=== PATIENT | female | born 1975 | race Caucasian/White ===

== ENCOUNTER 2020-08-08 14:18 | Outpatient (CLI) | payer OTHER, SELFPAY ==
[2020-08-08 14:28] LABS: Hematocrit 41.3 % (35.0-49.0); Hemoglobin 13.9 g/dL (12.0-15.0); Mean Corpuscular HGB Conc 33.7 g/dL (32.0-36.0); Mean Corpuscular Hemoglobin 28.5 pg (27.0-31.0); Mean Corpuscular Volume 84.6 fL (78.0-102.0); Mean Platelet Volume 9.3 fl (9.2-11.8); Platelet Count Result 248 K/mm3 (150-420); Red Blood Count 4.88 M/mm3 (4.20-5.40); White Blood Count 9.4 K/mm3 (4.8-10.8)
[2020-08-08 15:43] LABS: Alanine Aminotransferase 36 U/L (14-59); Albumin Level 3.7 g/dL (3.4-5.0); Alkaline Phosphatase 95 U/L (46-116); Anion Gap 10 mmol/L (8-16); Aspartate Amino Transferase 34 U/L (15-37); Bilirubin,Total 0.4 mg/dL (0.00-1.00); Blood Urea Nitrogen 18 mg/dL (7-18); Calcium 9.2 mg/dL (8.5-10.1); Carbon Dioxide 24 mmol/L (21-32); Chloride 106 mmol/L (98-108); Cholesterol 229 mg/dL (0-200); Estimated Glomerular Filt Rate 55; Glucose 113 mg/dL (70-99); HDL Direct 30 mg/dL (40-60); LDL Cholesterol Calculated 158 mg/dL (<130); Osmolality Calculated 292 mOsm/kg (285-295); Potassium 4.1 mmol/L (3.5-5.1); Sodium 140 mmol/L (136-145); Total Protein 7.2 g/dL (6.4-8.2); Triglycerides 207 mg/dL (0-150)
[2020-08-08 16:22] LABS: Thyroid Stimulating Hormone Reflex 3.87 u/IU/mL (0.36-3.74)
[2020-08-08 16:23] LABS: Free T4 Free Thyroxine Reflex 0.81 ng/dL (0.76-1.46)
== END 2020-08-08 14:19 | disposition home or self-care (01) ==
LOC: CHSLAB 14:20
PROVIDERS: PCP Family Medicine; Visit Provider Family Medicine
DX: Z00.00 Encounter for general adult medical examination without abnormal findings (principal)
CPT/HCPCS: 36415; 80053; 80061; 84439; 84443; 85027

== ENCOUNTER 2020-12-28 13:59 | Outpatient (NON) | payer OTHER, SELFPAY | END 2020-12-28 14:00 | LOC: CHSLAB 14:01 | PROVIDERS: PCP Nurse Practitioner Family; Visit Provider Nurse Practitioner Family | DX: R35.0 Frequency of micturition (principal) | CPT/HCPCS: 87077; 87086; 87088; 87186 ==

== ENCOUNTER 2021-01-09 13:12 | Outpatient (CLI) | payer OTHER, SELFPAY ==
[2021-01-09 13:23] LABS: Add Urine Microscopic? YES; Appearance Urine Clear (Clear); Bilirubin Urine Negative (Negative); Blood Urine 1+ (Negative); Color Urine Yellow (Yellow); Glucose Urine UA Negative (Negative); Ketones Urine Negative (Negative); Leukocyte Esterase Ur Trace (Negative); Nitrate Urine Negative (Negative); Protein Urine Negative (Negative); Urobilinogen Urine 0.2 mg/dL (0.2-1.0)
[2021-01-09 13:38] LABS: RBC Urine 0-2 /hpf (0-2); Squamous Epithelial Cell Urine Occasional /hpf (Few); WBC Urine None seen /hpf (0-3)
[2021-01-09 13:39] LABS: Bacteria Urine Trace /hpf
== END 2021-01-09 13:13 | disposition home or self-care (01) ==
LOC: CHSLAB 13:15
PROVIDERS: PCP Nurse Practitioner Family; Visit Provider Nurse Practitioner Family
DX: R35.0 Frequency of micturition (principal)
CPT/HCPCS: 81001; 87086; 87088

== ENCOUNTER → 2021-03-21 10:08 | Outpatient (CLI) | payer OTHER, SELFPAY ==
--- NOTE | ~2021-03-21 | MM_ITS ---
EXAMINATION: MM screening precious BI w anny HISTORY: Screening TECHNIQUE: Craniocaudal and mediolateral oblique 3-D tomosynthesis images were obtained and synthetic 2-D images were generated. CAD analysis was submitted and interpreted. COMPARISON: Comparison to multiple prior studies sequentially, with oldest reviewed study dated 03/17. BREAST PARENCHYMAL COMPOSITION: There are scattered areas of fibroglandular density. FINDINGS: There is no evidence of suspicious mass, calcification, or architectural distortion to sugg est malignancy in either breast. There has been no suspicious interval change. IMPRESSION: 1. No mammographic evidence of malignancy. 2. Recommend routine screening mammography in one year. BI-RADS Category 1: Negative Reviewed, dictated and finalized at location A.
== END ==
PROVIDERS: Visit Provider Obstetrics & Gynecology
DX: Z12.31 Encounter for screening mammogram for malignant neoplasm of breast (principal)
CPT/HCPCS: 77063; 77067

== ENCOUNTER 2021-11-06 09:04 | Outpatient (CLI) | payer OTHER, SELFPAY ==
[2021-11-06 09:51] LABS: SARS-CoV-2 Ag Negative (Negative)
== END 2021-11-06 09:05 | disposition home or self-care (01) ==
LOC: CHSLAB 09:06
PROVIDERS: PCP Nurse Practitioner Family; Visit Provider Nurse Practitioner Family
DX: Z20.822 Contact with and (suspected) exposure to COVID-19 (principal)
CPT/HCPCS: 87426; C9803

== ENCOUNTER 2021-11-08 13:34 | Outpatient (CLI) | payer OTHER, SELFPAY ==
[2021-11-08 15:08] LABS: SARS-CoV-2 Ag Positive (Negative)
== END 2021-11-08 13:35 | disposition home or self-care (01) ==
LOC: CHSLAB 13:36
PROVIDERS: PCP Nurse Practitioner Family; Visit Provider Nurse Practitioner Family
DX: U07.1 COVID-19 (principal)
CPT/HCPCS: 87426; C9803

== ENCOUNTER 2022-03-12 09:32 | Outpatient (CLI) | payer OTHER, SELFPAY ==
[2022-03-17 14:34] LABS: TB Skin Test Interpretation Unable to Read (Negative); TB Skin Test Site Left Arm
== END 2022-03-12 09:33 | disposition home or self-care (01) ==
LOC: CHSLAB 09:34
PROVIDERS: PCP Nurse Practitioner Family; Visit Provider Nurse Practitioner Family
DX: Z11.1 Encounter for screening for respiratory tuberculosis (principal)
CPT/HCPCS: 36415; 86580

== ENCOUNTER 2022-04-15 15:12 | Outpatient (CLI) | payer OTHER, SELFPAY | END 2022-04-15 15:13 | disposition home or self-care (01) | PROVIDERS: PCP Nurse Practitioner Family; Visit Provider Nurse Practitioner Family | DX: R30.0 Dysuria (principal); R19.7 Diarrhea, unspecified | CPT/HCPCS: 87045; 87077; 87086; 87088; 87186; 87427 ==

== ENCOUNTER 2022-04-18 11:08 | Emergency (ER) | payer OTHER, SELFPAY ==
--- NOTE | ~2022-04-18 | CT_ITS ---
EXAMINATION: CT abdomen pelvis wo con DATE: 04/18/2022 11:51 INDICATION: Abdominal pain. Diarrhea. TECHNIQUE: Computed tomography (CT) of the abdomen and pelvis was performed without intravenous contr ast. Automated exposure control and iterative reconstruction technique were employed. The dose-length product was 329.16 mGy-cm. COMPARISON: None. FINDINGS: The visualized portions of the lung bases demonstrate mild atelectasis. There is a 5 mm nod ule in left lower lobe, likely benign. No pleural effusion. The heart size is normal. No pericardial effusion. The liver, gallbladder, spleen, pancreas, adrenal glands, and right kidney are normal. Ther e is mild atrophy of left kidney. There is a 6 mm stone in left kidney. There is liquid stool in the colon correlating with the symptom of diarrhea. There are no dilated loops of bowel. The appendix is normal. There are no pathologically enlarged lymph nodes. There is no free intraperitoneal fluid. The re is a benign bone island in right ilium. IMPRESSION: 1. Nonobstructing left kidney stone. Reviewed, dictated and finalized at location B.
[2022-04-18 11:10] VITALS: BP 129/83; PULSE 84; RESP 18; TEMP 36.1; O2SAT 98
[2022-04-18 11:27] LABS: Basophils Percent Auto 0.4 % (0.2-1.2); Eosinophils Absolute Auto 0.1 K/mm3 (0-0.3); Eosinophils Percent Auto 1.7 % (0-4.4); Hematocrit 41.7 % (37.0-47.0); Immature Granulocyte Absolute 0.02 K/mm3 (0.00-0.031); Immature Granulocyte Percent A 0.4 % (0-0.5); Lymphocytes Absolute Auto 1.18 K/mm3 (0.9-3.2); Lymphocytes Percent Auto 22.3 % (18.3-44.2); Mean Corpuscular HGB Conc 33.6 g/dl (32-36); Mean Corpuscular Hemoglobin 28.1 pg (26-34); Mean Corpuscular Volume 83.7 fl (80-100); Mean Platelet Volume 8.9 fl (7.4-10.4); Monocytes Absolute Auto 0.5 K/mm3 (0.1-0.6); Monocytes Percent Auto 9.6 % (2.6-8.5); Neutrophils Absolute Auto 3.5 K/mm3 (1.3-6.7); Neutrophils Percent Auto 65.6 % (45.5-73.1); Platelet Count Result 247 k/mm3 (150-375); Red Blood Count 4.98 M/mm3 (4.2-5.4); Red Cell Distribution Width 13.2 % (11.5-14.5); White Blood Count 5.3 K/mm3 (4.5-10.0)
[2022-04-18 11:36] LABS: Alanine Aminotransferase 119 U/L (6-35); Albumin Level 4.2 g/dL (3.5-5.1); Alkaline Phosphatase 87 U/L (38-126); Anion Gap 7 mmol/L (8-16); Aspartate Amino Transferase 68 U/L (14-36); Bilirubin,Total 0.8 mg/dL (0.2-1.3); Blood Urea Nitrogen 10 mg/dL (7-17); Calcium 8.5 mg/dL (8.4-10.2); Carbon Dioxide 23 mmol/L (22-30); Chloride 110 mmol/L (98-107); Estimated CRCL calculation 70 ml/min; Estimated Glomerular Filt Rate > 60; Glucose 99 mg/dL (65-110); Lipase 76 U/L (23-300); Potassium 3.6 mmol/L (3.4-5.0); Sodium 140 mmol/L (137-145)
--- NOTE | 2022-04-18 11:36 | ED.ABDPAIN ---
HPI - Abdominal Pain General Chief Complaint: Abdominal Pain Stated Complaint: Stomach Craps, Diarrhea x1 week Time Seen by Provider: 04/18/22 11:25 Source: patient Mode of arrival: ambulatory Limitations: no limitations History of Present Illness HPI narrative: Patient presents to the emergency department for diarrhea. Ongoing over the last week. Reports she has about 2 episodes of diarrhea daily. The stool is liquid. She has not had any blood in the stool. Reports ongoing crampy abdominal pain. She has been having some dysuria. She saw her primary provider who ordered stool cultures and urine culture. Stool cultures came back negative. Reports some nausea. Denies fever, vomiting, or hematuria. Related Data Allergies Allergy/AdvReac Type Severity Reaction Status Date / Time amoxicillin Allergy Unknown RASH, SOB Verified 04/18/22 11:14 Review of Systems Review of Systems: CONSTITUTIONAL: Denies fever GASTROINTESTINAL: Reports abdominal pain, nausea and diarrhea. 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 Migraines Overweight with body mass index (BMI) 25.0-29.9 Systolic murmur 2018 - Echo was normal Surgical History Surgical History History of endometrial ablation History of total knee arthroplasty Arthroscopic Repair of left knee as a child Family History Family History Mother Hypertension Sibling Asthma Mesothelioma of both lungs Social History Social History Smoking status: Never smoker Alcohol intake: never Substance use: never Substance use type: does not use Gender identity (if verbalized by the patient): Female Exam Narrative: GENERAL: Well-appearing, well-nourished, and in no acute distress. HEAD: Normocephalic, atraumatic. EYES: EOMI. CHEST: Clear to auscultation. No respiratory distress. No wheezes rales or rhonchi HEART: Regular rate and rhythm. No murmur heard. Normal peripheral pulses. ABDOMEN: Soft, nontender, nondistended, normal active bowel sounds. EXTREMITIES: Normal range of motion. No edema. SKIN: Warm, dry, no rash. NEURO: No focal deficits. Alert and oriented x3. PSYCH: Normal mood and affect Course Consultations Consultation #1: Spoke with patient's primary about work-up who will follow-up in clinic. Date: 04/18/22 Vital Signs Vital signs: Vital Signs Temperature 97.0 F L 04/18/22 11:10 Pulse Rate 84 04/18/22 11:10 Respiratory Rate 18 04/18/22 11:10 Blood Pressure 129/83 04/18/22 11:10 Pulse Oximetry 98 04/18/22 11:10 Oxygen Delivery Room Air 04/18/22 11:10 Temperature 97.0 F L 04/18/22 11:10 Pulse Rate 84 04/18/22 11:10 Respiratory Rate 18 04/18/22 11:10 Blood Pressure 129/83 04/18/22 11:10 Pulse Oximetry 98 04/18/22 11:10 Oxygen Delivery Room Air 04/18/22 11:10 MDM - Abdominal Pain MDM Narrative Medical decision making narrative: Patient presents to the emergency department for abdominal cramping and diarrhea. Ongoing over the last week. Patient is afebrile and nontoxic-appearing. CBC without leukocytosis. Metabolic panel with mild transaminitis. Lipase is normal. Patient did have a UA that see culture just came back positive. Will be started on Macrobid based on sensitivities. test is negative. CT scan of the abdomen and pelvis shows a nonobstructing left kidney stone. No other acute findings. Patient was updated on case findings. Spoke with patient's primary about work-up who will follow-up in clinic. Patient will als
--- NOTE | 2022-04-18 11:39 | PC.NURSE ---
Pt states her tubes are tied in 2007.
--- NOTE | 2022-04-18 12:16 | PC.NURSE ---
pt states she is unable to void at this time.
[2022-04-18] MEDS: SODIUM CHLORIDE 0.9% IV 1,000 ML 999 ML IV CONT (12:17)
[2022-04-18] MEDS: ONDANSETRON INJ 4 MG/2 ML VIAL IV PUSH (12:18)
[2022-04-18 13:37] LABS: Add Urine Microscopic? YES; Appearance Urine Cloudy (Clear); Bilirubin Urine 1+ (Negative); Blood Urine 2+ (Negative); Color Urine Yellow (Yellow); Glucose Urine UA Negative (Negative); Ketones Urine Trace mg/dL (Negative); Leukocyte Esterase Ur Negative LEU/UL (Negative); Nitrate Urine Negative (Negative); Protein Urine 1+ mg/dL (Negative); Specific Grav Ur 1.025 (1.001-1.035); Urobilinogen Urine 0.2 mg/dL (<2.0)
[2022-04-18 13:47] LABS: Bacteria Urine Trace /hpf; Mucus Urine Few /lpf; Squamous Epithelial Cell Urine Many /hpf (Few)
[2022-04-18] MEDS: FLUCONAZOLE 150 MG TABLET PO (14:43)
== END 2022-04-18 14:59 | disposition home or self-care (01) ==
PROVIDERS: Emergency Provider Emergency Medicine; PCP Nurse Practitioner Family
DX: N39.0 Urinary tract infection, site not specified (principal); R19.7 Diarrhea, unspecified; R74.01 Elevation of levels of liver transaminase levels; N20.0 Calculus of kidney; E66.3 Overweight; Z68.26 Body mass index [BMI] 26.0-26.9, adult
CPT/HCPCS: 36415; 74176; 80053; 81001; 81025; 83690; 85025; 87077; 87086; 87186; 96361; 96365; 96375; 99284; A9270; J0131; J2405; J7030

== ENCOUNTER 2022-04-24 15:31 | Outpatient (CLI) | payer OTHER, SELFPAY | END 2022-04-24 15:32 | disposition home or self-care (01) | LOC: ANHLAB 15:34 | PROVIDERS: PCP Nurse Practitioner Family; Visit Provider Nurse Practitioner | DX: R19.7 Diarrhea, unspecified (principal) | CPT/HCPCS: 87177; 87209; 87493 ==

== ENCOUNTER 2022-05-09 13:46 | Outpatient (CLI) | payer OTHER, SELFPAY | END 2022-05-09 13:47 | disposition home or self-care (01) | LOC: CHSLAB 13:48 | PROVIDERS: PCP Nurse Practitioner Family; Visit Provider Nurse Practitioner | DX: R19.7 Diarrhea, unspecified (principal); A07.4 Cyclosporiasis | CPT/HCPCS: 87015; 87207 ==

== ENCOUNTER 2022-05-16 01:48 | Day surgery (SDC) | payer OTHER, SELFPAY ==
[2022-04-30 10:46] VITALS: BMI 26.6
--- NOTE | 2022-05-15 14:41 | WPDANESEPPF ---
Anes - Initial Pre Proc Eval Procedure: Operation Date: 05/16/22 11:30 Proposed Procedures p Colonoscopy - Michele Herron MD <Rosalio Magana DO - Last Filed: 05/16/22 11:14> Date/Time: 05/15/22 14:41 <Rosalio Magana DO - Last Filed: 05/16/22 11:14> Surgeon: Michele Herron MD <Rosalio Magana DO - Last Filed: 05/16/22 11:14> Pre Op Diagnosis: diarrhea <Rosalio Magana DO - Last Filed: 05/16/22 11:14> Patient Data Age: 47 Gender: F Height: 1.6 m Weight: 68.4 kg <Rosalio Magana DO - Last Filed: 05/16/22 11:14> Allergies Allergy/AdvReac Type Severity Reaction Status Date / Time amoxicillin Allergy Unknown RASH, SOB Verified 05/16/22 10:35 <Rosalio Magana DO - Last Filed: 05/16/22 11:14> Home Medications Medication Instructions Recorded Confirmed Type No Home Medications 05/16/22 05/16/22 History <Rosalio Magana DO - Last Filed: 05/16/22 11:14> Patient hx anesthesia problems: none <Kamille Keenan CRNA - Last Filed: 05/16/22 09:40> Family hx anesthesia problems: none <Kamille Keenan CRNA - Last Filed: 05/16/22 09:40> Results Review: All pre-operative results and documents have been reviewed as part of the pre-operative evaluation. 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 Migraines Overweight with body mass index (BMI) 25.0-29.9 Systolic murmur 2018 - Echo was normal <Rosalio Magana DO - Last Filed: 05/16/22 11:14> Surgical History Surgical History: Surgical History History of endometrial ablation History of total knee arthroplasty Arthroscopic Repair of left knee as a child History of tubal ligation <Rosalio Magana DO - Last Filed: 05/16/22 11:14> Family History Family History: Family History Mother Hypertension Sibling Asthma Mesothelioma of both lungs <Rosalio Magana DO - Last Filed: 05/16/22 11:14> Social History Social History: Social History Smoking status: Never smoker Alcohol intake: never Substance use: never Substance use type: does not use Living arrangements: with family Gender identity (if verbalized by the patient): Female Spiritual care concerns: No <Rosalio Magana DO - Last Filed: 05/16/22 11:14> Anes - Eval Final PreProcedure Day of Procedure 05/15/22 14:41 <Rosalio Magana DO - Last Filed: 05/16/22 11:14> Patient weight: overweight <Rosalio Magana DO - Last Filed: 05/16/22 11:14> Heart: regular rate and rhythm <Rosalio Magana DO - Last Filed: 05/16/22 11:14> Lungs: clear to auscultation <Rosalio Magana DO - Last Filed: 05/16/22 11:14> Airway: Mallampati scale class II <Rosalio Magana DO - Last Filed: 05/16/22 11:14> Neurological: alert and oriented <Rosalio Magana DO - Last Filed: 05/16/22 11:14> Last oral intake: >/= 8 hours <Rosalio Magana DO - Last Filed: 05/16/22 11:14> ASA classification: II <Rosalio Magana DO - Last Filed: 05/16/22 11:14> Emergent: no <Rosalio Magana DO - Last Filed: 05/16/22 11:14> Anesthetic plan: proceed <Rosalio Magana DO - Last Filed: 05/16/22 11:14> Anesthesia type and monitoring: general GIVS and standard monitoring <Rosalio Magana DO - Last Filed: 05/16/22 11:14> Results Review: All pre-operative results and documents have been reviewed as part of the pre-ope
--- NOTE | 2022-05-15 15:32 | P.HP_ITS ---
History of Present Illness History of Present Illness Consent: Risks, benefits, and alternatives have been discussed and questions answered. Patient agrees to proceed with procedure. Chief complaint: diarrhea Narrative: Cherrie Pena is a 47 year old female Referred for investigation of diarrhea which began several weeks ago. She also had abdominal cramping with that. She was seen in the emergency room where CT scan was unremarkable. She works at a care home and there has been a parasite going around there. She cannot recall the name of it. After taking metronidazole, her symptoms improved. 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 Migraines Overweight with body mass index (BMI) 25.0-29.9 Systolic murmur 2018 - Echo was normal Surgical History Surgical History History of endometrial ablation History of total knee arthroplasty Arthroscopic Repair of left knee as a child History of tubal ligation Family History Family History Mother Hypertension Sibling Asthma Mesothelioma of both lungs Social History Social History Smoking status: Never smoker Alcohol intake: never Substance use: never Substance use type: does not use Living arrangements: with family Gender identity (if verbalized by the patient): Female Spiritual care concerns: No Meds Home Medications and Allergies Home Medications Medication Instructions Recorded Confirmed Type No Home Medications 05/16/22 05/16/22 History Allergies Allergy/AdvReac Type Severity Reaction Status Date / Time amoxicillin Allergy Unknown RASH, SOB Verified 05/16/22 10:35 Exam Resp: Auscultation: clear to auscultation bilaterally Cardio: Rate: regular rate Rhythm: regular rhythm GI: GI Palp: Yes Soft to palpation and No Tenderness to palpation present (GI) Assessment and Plan Assessment and plan (1) Diarrhea: Code(s): R19.7 - Diarrhea, unspecified Status: Acute Assessment and Plan: Colonoscopy with possible biopsy or polypectomy or cautery or injection of substances.
[2022-05-16 10:36] VITALS: BP 107/75; PULSE 85; RESP 16; TEMP 36.1; O2SAT 100; BMI 25.5
[2022-05-16] MEDS: LACTATED RINGERS 1,000 ML 150 ML IV CONT (10:44)
[2022-05-16 11:34] VITALS: BP 101/67; PULSE 73; RESP 22; O2SAT 100
[2022-05-16 11:44] VITALS: BP 108/78; PULSE 89; RESP 21; O2SAT 100
== END 2022-05-16 12:00 | disposition home or self-care (01) ==
PROVIDERS: PCP Nurse Practitioner Family; Visit Provider Internal Medicine Gastroenterology
PROC: 0DJD8ZZ Inspection of Lower Intestinal Tract, Via Natural or Artificial Opening Endoscopic (ICD-10-PCS; CPT 45378; principal; 2022-05-16 11:30)
DX: K59.1 Functional diarrhea (principal); F41.8 Other specified anxiety disorders; F41.1 Generalized anxiety disorder; R01.1 Cardiac murmur, unspecified
CPT/HCPCS: 45378; J2704; J7120

== ENCOUNTER 2023-04-03 08:46 | Outpatient (CLI) | payer OTHER, SELFPAY ==
[2023-04-03 09:02] LABS: Hemoglobin 13.3 g/dL (12.0-15.0); Mean Corpuscular HGB Conc 33.3 g/dL (32.0-36.0); Mean Corpuscular Hemoglobin 28.9 pg (27.0-31.0); Mean Corpuscular Volume 86.8 fL (78.0-102.0); Mean Platelet Volume 9.1 fl (9.2-11.8); Platelet Count Result 198 K/mm3 (150-420); Red Blood Count 4.61 M/mm3 (4.20-5.40); Red Cell Distribution Width 12.9 % (11.6-14.4); White Blood Count 6.3 K/mm3 (4.8-10.8)
[2023-04-03 09:52] LABS: Alanine Aminotransferase 41 U/L (14-59); Albumin Level 3.6 g/dL (3.4-5.0); Alkaline Phosphatase 62 U/L (46-116); Anion Gap 8 mmol/L (8-16); Aspartate Amino Transferase 29 U/L (15-37); Bilirubin,Total 0.6 mg/dL (0.00-1.00); Blood Urea Nitrogen 20 mg/dL (7-18); Calcium 8.5 mg/dL (8.5-10.1); Carbon Dioxide 24 mmol/L (21-32); Chloride 107 mmol/L (98-108); Cholesterol 190 mg/dL (0-200); Estimated Glomerular Filt Rate > 60; Glucose 112 mg/dL (70-99); HDL Direct 48 mg/dL (40-60); LDL Cholesterol Calculated 130 mg/dL (<130); Osmolality Calculated 291 mOsm/kg (285-295); Potassium 4.3 mmol/L (3.5-5.1); Sodium 139 mmol/L (136-145); Thyroid Stimulating Hormone 4.75 uIU/mL (0.36-3.74); Total Protein 6.5 g/dL (6.4-8.2); Triglycerides 61 mg/dL (0-150)
[2023-04-03 15:19] LABS: Hemoglobin A1C 5.4 % (<5.7)
[2023-04-03 15:22] LABS: Free T4 Free Thyroxine 0.92 ng/dL (0.76-1.46)
[2023-04-05 07:57] LABS: TB Skin Test Erythema 0 mm; TB Skin Test Induration 0 mm (0-10); TB Skin Test Interpretation Negative (Negative); TB Skin Test Site Left Arm
== END 2023-04-03 08:47 | disposition home or self-care (01) ==
LOC: CHSLAB 08:47
PROVIDERS: PCP Nurse Practitioner Family; Visit Provider Nurse Practitioner Family
DX: Z00.00 Encounter for general adult medical examination without abnormal findings (principal); Z11.1 Encounter for screening for respiratory tuberculosis; R73.9 Hyperglycemia, unspecified; R79.89 Other specified abnormal findings of blood chemistry
CPT/HCPCS: 36415; 80053; 80061; 83036; 84439; 84443; 85027; 86580

== ENCOUNTER 2024-08-04 15:54 | Outpatient (CLI) | payer OTHER, SELFPAY ==
--- NOTE | ~2024-08-04 | MM_ITS ---
EXAMINATION: MM screening precious BI w anny HISTORY: Screening TECHNIQUE: Craniocaudal and mediolateral oblique 3-D tomosynthesis images were obtained and synthetic 2-D images were generated. CAD analysis was submitted and interpreted. COMPARISON: Comparison to multiple prior studies sequentially, with oldest reviewed study dated 03/17. BREAST PARENCHYMAL COMPOSITION: Not dense: There are scattered areas of fibroglandular density. FINDINGS: There is no evidence of suspicious mass, calcification, or architectural distortion to sugg est malignancy in either breast. There has been no suspicious interval change. IMPRESSION: 1. No mammographic evidence of malignancy. 2. Recommend routine screening mammography in one year. BI-RADS Category 1: Negative Reviewed, dictated and finalized at location B.
== END 2024-08-04 15:55 | disposition home or self-care (01) ==
PROVIDERS: PCP Obstetrics & Gynecology Gynecology; Visit Provider Obstetrics & Gynecology Gynecology
DX: Z12.31 Encounter for screening mammogram for malignant neoplasm of breast (principal)
CPT/HCPCS: 77063; 77067

== ENCOUNTER 2025-05-13 08:24 | Outpatient (CLI) | payer OTHER, SELFPAY ==
--- OUTSIDE RECORDS SUMMARY | 2025-05-13 08:28 | XMS_ITS | Patient Health Record ---
Author Organization [facility] Address [address] [place] [address] Care Team Providers Care Chute Operator Name Role Phone BakerJoy Primary Care Provider Reason For Referral No Information Social History Tobacco Use: Social History Observation Description Date Details (start date - stop date) Never Smoker NA - NA Tobacco Use/Smoking Question Answer Notes Are you a nonsmoker Alcohol Screen (Audit-C) Question Answer Notes Did you have a drink contain ing alcohol in the past year? Yes How often did you have a dri nk containing alcohol in the past year? Monthly or less (1 point) How many drinks did you have on a typical day when you were drinking in the past year? 1 or 2 drinks (0 point) How often did you have 6 or more drinks on one occasion in the past year? Never (0 point) Points 1 Interpretation Negative Sexual History Question Answer Notes Had sex in the past 12 months (vaginal, oral, or anal)? Yes with Men only Use protection? No Have you ever had a Sexually transmitted disease ? No Problems Problem Type SNOMED Code ICD Code Onset Dates Problem Status W/U Status Risk Notes Problem Urinary tract infection (N39.0) 04/07/2012 0 confirmed Jesús- Plan Of Treatment Pending Test Test Name Order Date URINALYSIS, COMPLETE 08/12/2017 Insurance Providers Payer Name Payer Address Payer Phone Subscriber Number Group Number Insured Name Patient Relationship to Insured Coverage Start Date Coverage End Date [facility] [address] [place] [phone] [id number] Cherrie ePna Self - patient is the insured Medical (General) History Medical History History ICD Code Discharge of vagina Urinary frequency Contact dermatitis and other eczema, due to unspecified cause Acute cystitis Surgical History Surgery Date(Month/Year) knee surgery , Recorded Date /Time:2012-01-12 10:41:42.207 -05:00 ; 22years: Scope on left knee Tubal Ligation , Recorded Da te/Time:2012-01-12 00:00:00. -05:00 ;
[2025-05-13 08:54] LABS: Hematocrit 41.5 % (37.0-47.0); Hemoglobin 13.6 g/dL (12.0-15.0); Mean Corpuscular HGB Conc 32.8 g/dl (32-36); Mean Corpuscular Hemoglobin 28.3 pg (26-34); Mean Corpuscular Volume 86.5 fl (80-100); Platelet Count Result 235 k/mm3 (150-375); Red Blood Count 4.80 M/mm3 (4.2-5.4); White Blood Count 6.8 K/mm3 (4.5-10.0)
[2025-05-13 09:17] LABS: Alanine Aminotransferase 26 U/L (6-35); Albumin Level 4.1 g/dL (3.5-5.1); Alkaline Phosphatase 62 U/L (38-126); Anion Gap 8 mmol/L (4-12); Aspartate Amino Transferase 37 U/L (14-36); Bilirubin,Total 0.8 mg/dL (0.2-1.3); Blood Urea Nitrogen 20 mg/dL (7-17); Calcium 9.1 mg/dL (8.4-10.2); Carbon Dioxide 24 mmol/L (22-30); Chloride 106 mmol/L (98-107); Cholesterol 231 mg/dL (0-200); Estimated Glomerular Filt Rate 52; Glucose 105 mg/dL (65-110); HDL Direct 41 mg/dL; Potassium 4.0 mmol/L (3.4-5.0); Sodium 138 mmol/L (137-145); Total Protein 7.4 g/dL (6.3-8.2); Triglycerides 74 mg/dL (<150)
[2025-05-13 09:28] LABS: Hemoglobin A1C 5.4 % (<5.7)
[2025-05-13 09:52] LABS: Thyroid Stimulating Hormone 2.970 uIU/mL (0.465-4.680)
[2025-05-13 09:55] LABS: Free T4 Free Thyroxine 1.06 ng/dL (0.78-2.19)
[2025-05-13 10:11] LABS: Vitamin B12 518.0 pg/mL (239-931)
== END 2025-05-13 08:25 | disposition home or self-care (01) ==
LOC: ANHLAB 08:26
PROVIDERS: Visit Provider Nurse Practitioner Women's Health
DX: Z01.419 Encounter for gynecological examination (general) (routine) without abnormal findings (principal); E13.21 Other specified diabetes mellitus with diabetic nephropathy
CPT/HCPCS: 36415; 80053; 80061; 82306; 82607; 83036; 84439; 84443; 85027

== ENCOUNTER 2025-06-15 15:10 | Emergency (ER) | payer OTHER, SELFPAY ==
--- NOTE | 2025-06-15 15:11 | ED.SKABFB ---
HPI - Skin/Abscess/Foreign Bdy General Chief complaint: Skin/Abscess/Foreign Body Stated complaint: Rash/Allgeries Time Seen by Provider: 06/15/25 15:19 Source: patient, RN notes reviewed and old records reviewed Mode of arrival: ambulatory Limitations: no limitations History of Present Illness HPI narrative: 50-year-old female presents to the [facility] with 2 complaints has had a upper respiratory infection which is improving for the last couple of days. States that she needs a work note Also with under the breast pink rash, reports it is itchy and irritating. Not raised. No treatment prior to arrival Related Data Allergies Allergy/AdvReac Type Severity Reaction Status Date / Time amoxicillin Allergy Unknown RASH, SOB Verified 06/15/25 15:12 Review of Systems Review of Systems: All systems reviewed & are unremarkable except as noted in HPI and below Constitutional: Constitutional: Reports no additional constitutional complaints ENT: Reports as per HPI Cardiovascular: Cardiovascular: Reports no additional cardiovascular complaints, Denies chest pain and Denies dyspnea Respiratory: Respiratory: Reports no additional respiratory complaints, Denies chest congestion, Denies cough and Denies dyspnea Musculoskeletal: Musculoskeletal: Reports no additional musculoskeletal complaints Integumentary/Breasts: Skin/Breast: Reports as per HPI PMFSH Past Medical History Medical History 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 Overweight with body mass index (BMI) 25.0-29.9 Anxiety with depression Generalized anxiety disorder Systolic murmur 2018 - Echo was normal Migraines Surgical History Surgical History History of tubal ligation History of endometrial ablation History of total knee arthroplasty Arthroscopic Repair of left knee as a child Family History Family History Mother Hypertension Sibling Asthma Mesothelioma of both lungs Social History Social History Smoking status: Never smoker Alcohol intake: never Substance use: never Substance use type: does not use Lack of Transportation: No Lack of Food: Never True Current Housing: I Have Housing Concerned About Future Housing: No Difficulty Paying Gas/Electric Bills: No Difficulty Paying for Meds: No Currently Unemployed: No Education: Master's Degree or Higher Difficulty w/ Childcare or Family Care: No Living arrangements: with family Gender identity (if verbalized by the patient): Female Spiritual care concerns: No Comments At the time of my signature, I reviewed and agree with the nursing past medical, surgical, social, and family history. There is no relevant family history pertinent to the patient complaint. Exam Const: General: cooperative, healthy appearing, comfortable, no acute distress, well developed, alert and well nourished Nutritional Appearance: well nourished Orientation/consciousness: patient oriented x3 Limitations: no limitations HENMT: Head: normal to inspection Ears: hearing grossly normal bilaterally, external ears normal, TM's normal bilaterally, EAC's normal, mastoids normal and no periauricular adenopathy Mouth: Yes Normal oral and palatal mucosa present, Yes lip normal, Yes tongue normal and Yes moist mucous membranes Throat: posterior oropharynx normal, uvula midline and no uvular edema Eyes: General: appearance normal, both eyes and all related structures Alignment and Position: alignment normal Neck: Neck: normal visual inspection, full ROM, no lymphadenopathy and no meningeal signs Chest: Chest palpation & inspection: normal inspection of the chest Resp: Effort & Inspection: normal respiratory effort and able to speak in complete sentences Auscultation: clear to auscultation bilaterally, no crackles, no rales, no rhonchi and no wheezes Cardio: Rate: regular rate Skin: General skin exam: normal color and no rashes or lesions noted Rashes: rashes noted (Under bilateral breasts, center, no discharge, no fluctuance, no increased,) Neuro: General: patient oriented x3, gait normal, moves all extremities and no meningeal signs Cognition (Neuro): normal cognition Speech: normal speech Gait exam (Neuro): Normal gait present Extrem: General: normal to inspection, full ROM, capillary refill normal and normal gait Psych: Appearance: grossly normal and well kempt Mental Status: mental status grossly normal Speech and movement: Normal speech and movement present and Clear speech present Affect: normal affect Attitude: cooperative Course Course Level of Care: Express Care Visit Vital Signs Vital signs: Vital Signs Temperature 98.6 F 06/15/25 15:18 Pulse Rate 85 06/15/25 15:18 Respiratory Rate 14 06/15/25 15:18 Blood Pressure 131/84 06/15/25 15:18 Pulse Oximetry 100 06/15/25 15:18 Oxygen Delivery Room Air 06/15/25 15:18 Temperature 98.6 F 06/15/25 15:18 Pulse Rate 85 06/15/25 15:18 Respiratory Rate 14 06/15/25 15:18 Blood Pressure 131/84 06/15/25 15:18 Pulse Oximetry 100 06/15/25 15:18 Oxygen Delivery Room Air 06/15/25 15:18 Reviewed MDM - Skin/Abscess/Foreign Bdy MDM Narrative Medical decision making narrative: Patient sitting comfortably in exam room. Patient is nontoxic, vitals are stable. Patient presents with 2 complaints 1 a URI symptom most likely viral, improving without treatment. Patient also with a rash under breast, yeasty in appearance. Will cover with antifungal Patient appropriate for outpatient treatment with close follow-up Discharge instructions reviewed with patient, as well as provided in writing per nursing staff. The instructions also include specific and strict return/GO TO THE ER as well as f/u information. All questions have been answered, and the patient deny any further questions with discharge and discharge plan. Some parts of this dictation were generated by voice recognition software and may contain typographical and/or grammatical inaccuracies. Differential Diagnosis Differential diagnosis: Likely abscess of skin or subcutaneous tissue, viral exanthem, urticaria, allergic reaction to drug, cellulitis, insect bites, contact dermatitis and other (Yeast infection) Critical Care Time Critical Care Time Critical Care Time: No Discharge Plan Discharge Clinical Impression: Upper respiratory infection, viral, Yeast infection of the skin Patient Disposition: Home Condition: Stable Instructions: Antibiotic Form, Upper Respiratory Infection (DC), Skin Yeast Infection (ED) Additional Instructions: Your symptoms are likely due to a viral illness, which is not treated with antibiotics. Typically viral infections last 7-10 days, can linger for couple of weeks. It is very important to treat your symptoms. Drink plenty of water, Gatorade, Pedialyte, ice pops or Jell-O. -Alternate Tylenol and Motrin per package directions for fever or pain. You can alternate every 4 hours -Antihistamine medication such as Zyrtec/Claritin/Digna during the day can help improve symptoms. -doing daily nasal irrigations can help relieve pressure your sinuses. Things like a Neti pot -Use Flonase twice a day for 5 days then daily to help reduce the inflammation and dry up your sinuses. -You can also use Mucinex. Be sure to drink plenty of water with this medication at least 8 ounces with every dose and it is important to drink 8 to 10 glasses of water per day. Water is a natural decongestant -Eat and drink things that are easy to swallow, like tea or soup, or popsicles. -Oral rinses such as: Salt water gargles and/or may use topical anesthetic (eg. Chloraseptic spray) or lozenges to relieve dryness or throat pain). -Frequent hand washing or hand residential caregiver is one of the best ways to prevent spread of infection. -Using a vaporizer or humidifier at night will also help thin secretions and help with coughing up phlegm. -Follow up with primary care provider in 7-10 days if condition is not improving - For new or worsening symptoms go directly to the nearest ER For the skin rash, mixed together equally the to creams, apply twice daily a some small amount Keep area dry. Patient Language: [place] Prescriptions: New clotrimazole 1 % cream 1 applic topical BID 14 Days Qty: 45 0RF clobetasol 0.05 % cream 1 applic topical BID 14 Days Qty: 45 0RF Follow-up/Referrals: UNKNOWN,DOCTOR [Non-Staff] - Stand Alone Forms: Work/School Release IP Time of Disposition: 15:33
[2025-06-15 15:18] VITALS: BP 131/84; PULSE 85; RESP 14; TEMP 37; O2SAT 100
== END 2025-06-15 15:40 | disposition home or self-care (01) ==
PROVIDERS: Emergency Provider Nurse Practitioner
DX: J06.9 Acute upper respiratory infection, unspecified (principal); B37.2 Candidiasis of skin and nail; R01.1 Cardiac murmur, unspecified
CPT/HCPCS: 99213; G0463

== ENCOUNTER 2025-08-07 14:50 | Outpatient (CLI) | payer OTHER, SELFPAY ==
--- NOTE | ~2025-08-07 | MM_ITS ---
EXAMINATION: [facility] INDICATION: Asymptomatic, referred for screening mammogram COMPARISON: 08/04/2024 through 03/17/2016 TECHNIQUE: Digital Breast Tomosynthesis CC, MLO views of Both breasts were obtained with computer-aided detection to assist in interpretation of the study. FINDINGS: There are scattered areas of fibroglandular density. There is a group of microcalcifications in the superior lateral left breast at middle third. Elsewhere, there are no mammographic features of malignancy. IMPRESSION: 1. Left breast Incompletely characterized group of calcifications. 2. No evidence of malignancy in the Right breast. RECOMMENDATION: Left breast Diagnostic mammogram with true lateral, and appropriate magnification views. BI-RADS Category 0: Incomplete: Needs additional imaging evaluation. Reviewed, dictated and finalized at location C. IMPRESSION: 1. Left breast Incompletely characterized group of calcifications. 2. No evidence of malignancy in the Right breast. RECOMMENDATION: Left breast Diagnostic mammogram with true lateral, and appropriate magnificati on views. BI-RADS Category 0: Incomplete: Needs additional imaging evaluation.
== END 2025-08-07 14:51 | disposition home or self-care (01) ==
LOC: MICIMG 14:53
PROVIDERS: PCP Obstetrics & Gynecology Gynecology; Visit Provider Obstetrics & Gynecology Gynecology
DX: Z12.31 Encounter for screening mammogram for malignant neoplasm of breast (principal); R92.8 Other abnormal and inconclusive findings on diagnostic imaging of breast
CPT/HCPCS: 77063; 77067

== ENCOUNTER 2025-08-28 09:53 | Outpatient (CLI) | payer OTHER, SELFPAY ==
--- NOTE | ~2025-08-28 | MM_ITS ---
EXAMINATION: MM diagnostic precious LT w anny HISTORY: Follow-up left breast calcifications TECHNIQUE: Additional 3-D tomosynthesis images of the left were performed and synthetic 2-D images were generated. CAD analysis was submitted and interpreted. COMPARISON: Comparison to multiple prior studies sequentially, with oldest reviewed study dated 03/21/2021. BREAST PARENCHYMAL COMPOSITION: Not dense: There are scattered areas of fibroglandular density. FINDINGS: There is a new cluster of indeterminate calcifications in the upper outer quadrant of the left breast, middle third. There are no suspicious masses or architectural distortion. IMPRESSION: 1. New cluster of indeterminate left breast calcifications. 2. Recommend stereotactic left breast biopsy. BI-RADS category 4, suspicious findings. Reviewed, dictated and finalized at location B.
--- OUTSIDE RECORDS SUMMARY | 2025-08-28 11:12 | XMS_ITS | Patient Health Record ---
Author Organization [facility] Address [address] [place] [address] Care Team Providers Care Pharmacy Laboratory Technician Name Role Phone KOBE Baker Primary Care Provider Reason For Referral No Information Social History Tobacco Use: Social History Observation Description Date Details (start date - stop date) Never Smoker NA - NA Social History Sexual History: Social Info Question Answer Notes Sexual History Had sex in the past 12 months (vaginal, oral, or anal)? Yes with Men only Use protection? No Have you ever had a Sexually transmitted disease ? No Drugs/Alcohol: Social Info Question Answer Notes Alcohol Screen (Audit-C) Did you have a drink containing alcohol in the past year? Yes How often did you have a drink containing alcohol in the past year? Monthly or less (1 point) How many drinks did you have on a typical day when you were drinking in the past year? 1 or 2 drinks (0 point) How often did you have 6 or more drinks on one occasion in the past year? Never (0 point) Points 1 Interpretation Negative Drugs Have you used drugs other than those for medical reasons in the past 12 months? No Caffeine Intake: 1-2 cups per day Tobacco Use: Social Info Question Answer Notes Tobacco Use/Smoking Are you a nonsmoker Problems Problem Type SNOMED Code ICD Code Onset Dates Problem Status W/U Status Risk Notes Problem Urinary tract infection (03545288) Urinary tract infection (N39.0) 04/07/2012 0 confirmed Jesús- Plan Of Treatment Pending Test Test Name Order Date URINALYSIS, COMPLETE 08/12/2017 Insurance Providers Payer Name Payer Address Payer Phone Subscriber Number Group Number Insured Name Patient Relationship to Insured Coverage Start Date Coverage End Date [facility] [address] [place] [address] [phone] [id number] Cherrie Pena Self - patient is the insured Medical (General) History Medical History History ICD Code Discharge of vagina Urinary frequency Contact dermatitis and other eczema, due to unspecified cause Acute cystitis Surgical History Surgery Date(Month/Year) knee surgery , Recorded Date /Time:2012-01-12 10:41:42.207 -05:00 ; 22years: Scope on left knee Tubal Ligation , Recorded Da te/Time:2012-01-12 00:00:00.000 -05:00 ;
== END 2025-08-28 09:54 | disposition home or self-care (01) ==
LOC: CHSIMG 10:00
PROVIDERS: PCP Obstetrics & Gynecology Gynecology; Visit Provider Obstetrics & Gynecology Gynecology
DX: R92.8 Other abnormal and inconclusive findings on diagnostic imaging of breast (principal)
CPT/HCPCS: 77061; 77065; G0279

== ENCOUNTER 2025-09-08 07:25 | Outpatient (CLI) | payer OTHER, SELFPAY ==
--- NOTE | ~2025-09-08 | MM_ITS ---
AutoText: MM stereotactic bx LT, MM stereotactic specimen LT CLINICAL HISTORY: 50-year-old female with indeterminate left breast calcifications presents for stereotactic core needle biopsy procedure PROCEDURE: Stereotactic breast biopsy. The patient was brought into the stereotactic suite. A time-out procedure was performed. Preliminary images of the left breast were obtained to localize the calcifications. The area was then prepped and draped in the usual sterile fashion. 1% lidocaine was administered to the superficial soft tissues and 1% lidocaine without epinephrine was administered to the deeper soft tissues for local anesthesia. A julian was made in the skin and the 9 gauge Brevera biopsy needle was inserted through the julian and localized to the calcifications with confirmation by mammography. Multiple biopsy specimens were obtained. Images of the biopsy specimens demonstrate numerous calcifications corresponding with the suspicious calcifications seen on the mammogram. A microclip was placed in the biopsy site at the end of the procedure. The biopsy clip did not deploy at 2 separate attempts due to mechanical defect of the devices. Pressure was held at the site of biopsy and entry site for the needle until hemostasis was achieved. The patient tolerated the procedure well with no immediate post procedure complications. The biopsy specimens were sent to pathology for evaluation. Mammograms of the left breast in the craniocaudal and true lateral projections demonstrate no microclip in the biopsy site. The decision was then made to proceed to ultrasound guided placement of a left breast marker within the biopsy cavity which is still visible. Under ultrasound guidance the stereotactic biopsy cavity was identified at 2:00 to 3:00 location. An [place] biopsy clip was deployed in the biopsy cavity. The procedure was well tolerated with no immediate complications. IMPRESSION: Technically successful stereotactic biopsy of left breast calcifications. The patient tolerated the procedure well with no immediate post procedure complications. Reviewed, dictated and finalized at location B. DEVELOPER IMPRESSION: Technically successful stereotactic biopsy of left breast calcifica tions. The patient tolerated the procedure well with no immediate post procedur e complications.
--- NOTE | 2025-09-08 11:47 | S_PTH ---
PATIENT: Cherrie Pena LOC: [facility] U#:[id number] AGE/SX: 50/F ROOM: RE09/08/[address]: Shelby Harris MD : 1975 BED: DIS: 09/08/2025 SPEC #: [id number] RECD: 09/08/25 12:35 STATUS: MERRILL REEthel #: [id number] DANIEL: 09/08/25 11:[address]: Shelby Harris DEPT: [facility] Surgical RECD BY: Kenzie Duarte ENTERED: 09/08/25 12:51 SP TYPE: Surgical OTHR DR: Boaz Corley, Tissues: A - Breast Biopsy B - Breast Biopsy C - Breast Biopsy D - Breast Biopsy E - Breast Biopsy F - Breast Biopsy G - Breast Biopsy H - Breast Biopsy I - Breast Biopsy J - Breast Biopsy K - Breast Biopsy L - Breast Biopsy M - Breast Biopsy N - Breast Biopsy O - Breast Biopsy P - Breast Biopsy Q - Breast Biopsy R - Breast Biopsy S - Breast Biopsy Procedures: Hematoxylin and Eosin Stain Gross and Microscopic Level 4
== END 2025-09-08 07:26 | disposition home or self-care (01) ==
PROVIDERS: PCP Family Medicine; Visit Provider Surgery
DX: R92.0 Mammographic microcalcification found on diagnostic imaging of breast (principal); R92.8 Other abnormal and inconclusive findings on diagnostic imaging of breast
CPT/HCPCS: 19081; 76642; 76942; 76998; 88305; A4648

== ENCOUNTER 2025-10-04 09:10 | Outpatient (CLI) | payer OTHER, SELFPAY ==
--- NOTE | ~2025-10-04 | US_ITS ---
PROCEDURE(S): US_MAGSEEDLT_US INDICATION(S): Magseed placement COMPARISON(S): Studies dating back to August 07 TECHNIQUE/FINDINGS: Informed consent was obtained. Under sterile conditions, 1% lidocaine was injected as local anesthetic. With sonographic-guidance, a Magseed device is place in/adjacent to the finding/biopsy marker in question. Postprocedural imaging demonstrates the Magseed to lie in the expected location. No complications occurred. The patient tolerated the procedure well. IMPRESSION: Status post successful preoperative Magseed device placement. Reviewed, dictated and finalized at location B. RAL SERVICE APPRENTICE
== END 2025-10-04 09:11 | disposition home or self-care (01) ==
PROVIDERS: PCP Family Medicine; Visit Provider Surgery
DX: R92.8 Other abnormal and inconclusive findings on diagnostic imaging of breast (principal)
CPT/HCPCS: 19285; 77065; A4648

== ENCOUNTER 2025-10-11 02:19 | Day surgery (SDC) | payer OTHER, SELFPAY ==
--- NOTE | 2025-10-10 08:40 | PC.NURSE ---
[facility] has started construction of its new state of the art ER which will open Spring 2026. With this, we anticipate parking may be a challenge for some our surgical patients and families. Parking spaces are limited but are available for all Surgical, obstetrics, and ER patients sharing this lot. If you arrive and find you are having a hard time finding a parking space, please note that we understand the challenges, please drive around the hospital and park near Hospital Entrance 1. When you enter this entrance, you can ask a volunteer to direct or take you back to the surgical waiting area to check in. We appreciate everyone?s understanding of these expected challenges while we build for your future. Report to the Outpatient Waiting Room, entrance under the green pavilion located off [address], at time __11:30AM on date ___10/10/25____. Planned Procedure Time: ___1:30PM .? Time changes happen often and if your time is changed the preop area will call you the afternoon before. - You and your visitor will be asked to self-screen and do not enter if you have any COVID symptoms. Please call surgeon if you need to reschedule. - A mask is optional within the hospital at this time. Patients may have clear liquids (water, carbonated beverages, clear teas, apple juice) until 3 hours prior to surgery (10:30AM) with a maximum of 20 ounces. - No food from midnight until time of surgery and no smoking, or chewing tobacco (or any form of nicotine). No chewing gum, candy or mints. Take only the following medications with a SIP of water on the morning of surgery: ____NONE DO NOT STOP ANY OF YOUR OTHER PRESCRIPTION MEDICATIONS PRIOR TO SURGERY EXCEPT THE FOLLOWING Hold all vitamins and supplements for 3 days per anesthesiologist.--LAST DOSE STARTING NOW Medications to discontinue per physician NONE Date to take last dose Please no make-up, nail welsh, hairspray, perfume, deodorant, or body powder the day of surgery.? No jewelry (including any body piercings) or valuables the day of surgery, leave them at home.? Please take a shower or bath the night before, or the morning of, surgery with an antibacterial soap.? Wear comfortable, loose fitting clothing.? Children are encouraged to wear pajamas. - Jewelry must be removed prior to entering the operating room.? Rings and piercings that are not removed may be cut off. - The hospital will not accept responsibility for valuables.? - Please leave all valuables, including medications, at home the day of surgery. If you are going home after surgery, a licensed company truck driver must drive you home.? - NO public transportation without another adult if you receive anesthesia. - We recommend that an adult stay with you for 24 hours following discharge. - We also recommend that you do not drive, make important decision, drink alcoholic beverages, or take any drugs that were not prescribed by your health care provider for at least 24 hours after your discharge time. Follow any additional instructions given to you from your surgeon. Telephone instructions given to ____PATIENT and asked if any additional questions and then verbalized understanding. Patient advised to call surgeon office or pre surgery nurse liaison [phone] if any additional questions.
--- NOTE | 2025-10-11 | S_PTH ---
PATIENT: Cherrie Pena LOC: [facility] U#:[id number] AGE/SX: 50/F ROOM: RE10/11/[address]: Shelby Harris MD : 1975 BED: DIS: 10/11/2025 SPEC #: [id number] RECD: 10/12/25 08:04 STATUS: MERRILL REEthel #: [id number] DANIEL: 10/11/25 00:[address]: Shelby Harris DEPT: [facility] Surgical RECD BY: Kenzie Duarte ENTERED: 10/12/25 08:05 SP TYPE: Surgical OTHR DR: Boaz Corley DO Tissues: A - Breast Lumpectomy Procedures: Hematoxylin and Eosin Stain Gross and Microscopic Level 5
--- NOTE | ~2025-10-11 | MM_ITS ---
PROCEDURE(S): MM_FAXITRON_MG INDICATION(S): Left breast Calcifications COMPARISON(S): Studies dating back to August 07 TECHNIQUE: 2 radiographic views of the specimen FINDINGS: The specimen contains the biopsy marker, the Magseed, and residual calcifications. IMPRESSION: Status post successful excision of the area in question. Reviewed, dictated and finalized at location C. E BONER
--- OUTSIDE RECORDS SUMMARY | 2025-10-11 02:23 | XMS_ITS | Patient Health Record ---
Author Organization [facility] Address [address] [place] [address] Care Team Providers Care Ham Stringer Name Role Phone KOBE Baker Primary Care [...] Status Risk Notes Problem Urinary tract infection ([id number]) Urinary tract infection (N39.0) 04/07/2012 0 confirmed Jesús- Plan Of Treatment Pending Test Test Name Order Date URINALYSIS, COMPLETE 08/12/2017 Insurance Providers Payer Name Payer Address Payer Phone Subscriber Number Group Number Insured Name Patient Relationship to Insured Coverage Start Date Coverage End Date [facility] [address] [place] [address] [id number] Cherrie Pena Self - patient is the [...]
[2025-10-11 10:45] VITALS: BP 128/77; PULSE 84; RESP 18; TEMP 37.1; O2SAT 98
[2025-10-11] MEDS: LACTATED RINGERS 1,000 ML 30 ML IV CONT ×2 (10:45→15:05)
[2025-10-11] MEDS: ACETAMINOPHEN 500 MG TABLET 1000 MG PO (10:50)
[2025-10-11 11:07] VITALS: BMI 29.9
--- NOTE | 2025-10-11 11:54 | WPDANESEPPF ---
Anes - Initial Pre Proc Eval Procedure: Operation Date: 10/11/25 12:00 Proposed Procedures p Left Breast Lumpectomy with Mag Seed Localization, Possible Adjacent Tissue Transfer - Shelby Harris MD Date/Time: 10/11/25 11:54 Surgeon: Shelby Harris MD Pre Op Diagnosis: Microcalicfication left breast Patient Data Age: 50 Gender: F Height: 1.6 m Weight: 76.7 kg Last Vital Signs Temp 37.1 C 10/11/25 10:45 Pulse 84 10/11/25 10:45 Resp 18 10/11/25 10:45 BP 128/77 10/11/25 10:45 Pulse Ox 98 10/11/25 10:45 O2 Del Method Room Air 10/11/25 10:45 Allergies Allergy/AdvReac Type Severity Reaction Status Date / Time amoxicillin Allergy Unknown RASH, SOB Verified 10/11/25 11:06 Home Medications ?Medication ?Instructions ?Recorded ?Confirmed ?Type cholecalciferol (vitamin D3) 50 2,000 unit PO DAILY 10/10/25 10/11/25 History mcg (2,000 unit) capsule magnesium glycinate 100 mg (as 100 mg PO DAILY 10/10/25 10/11/25 History glycinate) tablet (Mag Glycinate) multivitamin (Daily Multi-Vitamin 1 tablet PO DAILY 10/10/25 10/11/25 History tablet) Patient hx anesthesia problems: none Family hx anesthesia problems: none Results Review: All pre-operative results and documents have been reviewed as part of the pre-operative evaluation. 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 Overweight with body mass index (BMI) 25.0-29.9 Anxiety with depression Generalized anxiety disorder Systolic murmur 2018 - Echo was normal Migraines Surgical History Surgical History History of tubal ligation History of endometrial ablation History of total knee arthroplasty Arthroscopic Repair of left knee as a child Family History Family History Mother Hypertension Sibling Asthma Mesothelioma of both lungs Social History Social History Smoking status: Never smoker Alcohol intake: current Alcohol use details: rarely Substance use: never Substance use type: does not use Lack of Transportation: No Lack of Food: Never True Current Housing: I Have Housing Concerned About Future Housing: No Difficulty Paying Gas/Electric Bills: No Difficulty Paying for Meds: No Currently Unemployed: No Education: Master's Degree or Higher Difficulty w/ Childcare or Family Care: No Living arrangements: with family Gender identity (if verbalized by the patient): Female Spiritual care concerns: No Anes - Eval Final PreProcedure Day of Procedure 10/11/25 11:54 Patient weight: obese Heart: regular rate and rhythm Lungs: clear to auscultation Airway: Mallampati scale class II Neurological: alert and oriented Last oral intake: >/= 8 hours ASA classification: II Emergent: no Anesthetic plan: proceed Anesthesia type and monitoring: general LMA and standard monitoring Results Review: All pre-operative results and documents have been reviewed as part of the pre-operative evaluation. Informed Consent: The patient's anesthetic plan and its attendant risks and benefits were discussed with the patient/family/POA. Questions were solicited and answers provided to the satisfaction of the patient/family/POA.
[2025-10-11] MEDS: SCOPOLAMINE 1 MG PATCH 1 PATCH TRANSDERM (12:05)
[2025-10-11 12:13] LABS: BEDSIDEPREGUCG Negative (Negative)
--- NOTE | 2025-10-11 13:00 | SUR.PREOP ---
1205- Patient aware of delay for procedure start time. 1300- Rounded on patient, declining restroom, and denying needs at this time.
[2025-10-11] MEDS: ceFAZolin 2 GM in SODIUM CHLORIDE 0.9% IV 50 ML 100 ML IVPB (13:47)
--- NOTE | 2025-10-11 14:53 | W.PM.PROC2 ---
Procedure Note - Detailed Date of Procedure 10/11/25 Pre-op Diagnosis Microcalicfication left breast, discordant needle biopsy result Post-op Diagnosis Same Procedure Performed Left breast lumpectomy with magseed localization Surgeon Shelby Harris MD Anesthesia Other (IV sedation) Description of Procedure Patient was identified in the pre-operative area and brought to the OR suite. She underwent tumor localization previously by IR with magseed placement. She was laid supine in the operating table and sequential compression devices were applied. General anesthesia was induced without difficulties. The left chest was prepped and draped in a sterile fashion. The sentimag probe was used to identify the area where the magseed was placed and a lateral curvilinear incision was made. Dissection was carried down through the subcutaneous tissue into the breast tissue. The area of concern was identified with palpation and using sentimag probe, and a rim of normal breast tissue was excised along with the magseed and biopsy marker as our lumpectomy specimen. Once the specimen was completely excised, it was oriented using surgical paint according to public opinion survey taker instructions. The specimen was placed in the faxitron and 2 radiographs were obtained and sent to Radiology for radiographic confirmation of biopsy marker and magseed within the center of specimen. Once the radiographic confirmation was received, the wound was irrigated with saline and hemostasis was assured. The deep dermal layer was approximated using interrupted 3-0 vicryl followed by 4-0 monocryl for the skin. Dermabond was applied followed by a surgical bra. Patient was awoken from anesthesia and taken to the recovery area in stable condition. All needles, instruments and sponge counts were correct as reported by the operating room staff. Patient tolerated the procedure well with no immediate complications. Estimated Blood Loss 2 Pathology Yes Complications No immediate complications Condition Stable Disposition PACU [facility] Billing Surgery - Charge Forward: Surgery Billing ([id number])
[2025-10-11 15:05] VITALS: BP 142/60; PULSE 71; RESP 16; O2SAT 97
[2025-10-11 15:35] VITALS: BP 151/67; PULSE 73
[2025-10-11] MEDS: oxyCODONE HCL (*CRX) 5 MG TAB IR PO (15:42)
[2025-10-11 16:05] VITALS: BP 150/76; PULSE 84
--- NOTE | 2025-10-12 08:03 | WPDHPUPDATE1 ---
History and Physical Update Update Date/Time: 10/12/25 08:03 - left breast lumpectomy with magseed localization, possible adjacent tissue transfer. History and Physical has been reviewed, including an updated exam of the patient. There are NO changes in the patient's condition. Risks, benefits, and alternatives have been discussed and questions answered. Patient agrees to proceed with procedure.
== END 2025-10-11 16:23 | disposition home or self-care (01) ==
PROVIDERS: PCP Family Medicine; Visit Provider Surgery
PROC: (CPT 19301; principal; 2025-10-11 12:00)
DX: R92.8 Other abnormal and inconclusive findings on diagnostic imaging of breast (principal); D24.2 Benign neoplasm of left breast; N60.12 Diffuse cystic mastopathy of left breast; N60.22 Fibroadenosis of left breast; N60.02 Solitary cyst of left breast; F41.8 Other specified anxiety disorders; R01.1 Cardiac murmur, unspecified; E66.9 Obesity, unspecified; Z68.30 Body mass index [BMI] 30.0-30.9, adult; Z98.890 Other specified postprocedural states; Z98.51 Tubal ligation status; Z98.891 History of uterine scar from previous surgery; Z80.1 Family history of malignant neoplasm of trachea, bronchus and lung
CPT/HCPCS: 19301; 76098; 88307; J0690; A9270; J1100; J2003; J2250; J2405; J2704; J3010; J7120